=== PATIENT | male | born 1985 | race Two or more races ===

== ENCOUNTER 2017-01-08 12:58 | Emergency (ER) | payer SELFPAY ==
[~2017-01-08] VITALS: Ht 200.7 cm; Wt 82.1 kg
[2017-01-08] MEDS ORDERED: EFFEXOR (13:12)
[2017-01-08] MEDS ORDERED: ADDERAL (13:12)
--- NOTE | 2017-01-08 13:12 | NUR ---
MEDICATION REPORT FROM [facility]. PT DENIES BEING ON MEDS - ALSO WAS REPORTED TO BE NONCOMPLIANT WITH MEDS.
--- NOTE | 2017-01-08 14:02 | NUR ---
DR ARRIETA AT THE BEDSIDE FOR EVAL AND EXAM.
[2017-01-08] MEDS ORDERED: NEOMY/BACITRA/POLYMYXIN B OINT UD PACKET TP ONE ×2 (14:15→14:44)
[2017-01-08] MEDS ORDERED: LIDOCAINE HCL 2% 20 ML VIAL TP ONE (14:15)
[2017-01-08] MEDS ORDERED: TDAP DIPH,PERTUSS,TET VAC/PF 0.5 ML DISP.SYRIN IM ONE ×2 (14:15→14:44)
[2017-01-08] MEDS ORDERED: LIDOCAINE HCL 2% 20 ML VIAL ONE (14:44)
--- NOTE | 2017-01-08 16:12 | NUR ---
Patient given written and verbal discharge instructions. Patient verbalizes understanding of instructions. Patient is ambulatory with steady gait. Refuses offer of group home placement. Patient given list of available shelters in surrounding area.
[2017-01-08 16:14] VITALS: BP 127/76
--- NOTE | 2017-01-08 16:14 | NUR ---
Found Pt script for abx and discharge paper work in the trash in pt's room.
== END 2017-01-08 16:15 | disposition home or self-care (01) ==
LOC: ER 12:58
DX: S41.111A Laceration without foreign body of right upper arm, initial encounter (principal); Z59.0 Homelessness; F15.10 Other stimulant abuse, uncomplicated; W22.01XA Walked into wall, initial encounter; Y93.89 Activity, other specified; Y92.9 Unspecified place or not applicable; Y99.9 Unspecified external cause status
CPT/HCPCS: 73060; 73090; 90715; A4217; A4663; J3490